=== PATIENT | male | born 1985 | race Caucasian/White ===

== ENCOUNTER 2019-05-24 03:33 | Emergency (ER) | payer OTHER ==
[~2019-05-24] VITALS: Ht 177.8 cm; Wt 81.7 kg
[~2019-05-24 03:33] MED LIST: ANXIETY MEDS; CHOL10002 PO; CYPR4 PO; DIVA500ER PO; GABA300 PO; GABA400 PO; LORPSEER24; NAPR220 PO; NICO2 PO; NICO21TP TOP; QUET25 PO; SIME80CH PO; VENL37.5 PO
[2019-05-24] MEDS ORDERED: GABA300 PO (03:57)
[2019-05-24] MEDS ORDERED: BUPR100 PO (03:58)
[2019-05-24] MEDS ORDERED: CEPH500 PO (04:47)
== END 2019-05-24 05:04 | disposition home or self-care (01) ==
LOC: ER 03:33
DX: S61.512A Laceration without foreign body of left wrist, initial encounter (principal); F32.9 Major depressive disorder, single episode, unspecified; F41.9 Anxiety disorder, unspecified; F17.210 Nicotine dependence, cigarettes, uncomplicated; Z79.899 Other long term (current) drug therapy; W26.0XXA Contact with knife, initial encounter
CPT/HCPCS: 12002; 73100; 90471; 90714; 99283-25

== ENCOUNTER 2021-08-29 12:13 | Emergency (ER) | payer OTHER ==
[~2021-08-29] VITALS: Ht 182.9 cm; Wt 72.6 kg
[~2021-08-29 12:13] MED LIST changes: +BUPR100 PO; +CEPH500 PO
== END 2021-08-29 14:45 | disposition home or self-care (01) ==
LOC: ER 12:13
DX: S06.0X0A Concussion without loss of consciousness, initial encounter (principal); F17.210 Nicotine dependence, cigarettes, uncomplicated; W18.30XA Fall on same level, unspecified, initial encounter
CPT/HCPCS: 70450; 72125; 99284-25; A9270